=== PATIENT | female | born 1935 | race Caucasian/White ===

== ENCOUNTER → 2016-07-24 | Outpatient (CLI) | payer MEDICARE ==
[~2016-07-24] MED LIST: COREG6.25 MG PO; COUMADIN5 MG PO; DIGOX0.25 MG PO; DITROPAN PO; DITROPAN XL5 M2 PO; DITROPAN5 MG PO; INDERAL40 MG PO; LEVAQUIN750 MG PO; LIPITOR PO; LIPITOR20 MG PO; LISINOPRIL2.5 MG PO; NITROGLYCERIN0.4 MG SL; NORCO 5/325 TAB1 TAB PO; PLAVIX PO; VICODIN 5/500 T1 TAB PO
--- NOTE | ~2016-07-24 | CR181 ---
[facility] A Service of [facility] RADIOLOGY TEXT RESULTS PATIENT: BRITTANEY LEAL LOCATION: [facility] : 36 UNIT #: [id number] AGE: [address]: OSMAR GRANDA SEX: F ORDER DR: [id number] [facility] [address]. [place], [place] [address] [id number] O MR#: [id number] Acc #: [id number] NAME: BRITTANEY LEAL : 1935 SEX: F STUDY DATE/TIME: 07/24/2016 12:59 UNIT: [facility] ROOM: STUDY DESCRIPTION: CR Lumbar Spine 2 or 3 Views Attending Physician: Micky Hurtado Referring Physician: Micky Hurtado Ordering Physician: Micky Hurtado Primary Care Physician: Becky Canales M.D. MEDICAL IMAGING REPORT This report is preliminary unless electronic signature is present EXAM 3 views lumbar spine. DATE 07/24/2016 HISTORY Lower back pain for 5 days. No known injury. COMPARISON Lumbar spine radiographs 03/25/2012. FINDINGS Bilateral pedicle screws and vertical fusion rods are present at L4, L5 and S1. Hardware appears intact. Disc spacer devices are present at L4-5 and L5-S1. There is moderate diminished disc height at L2-3 which appears to have progressed since prior examination. There is mild posterior spurring at L2-3. Approximately 3-4 mm retrolisthesis of L2 with respect L3, unchanged compared to prior. No acute lumbar spine fracture is seen. There is levoscoliotic curvature centered at L3. IMPRESSION 1. Progressive degenerative loss of disc height at L2-3 in comparison to the 03/25/2012 examination. 4 mm retrolisthesis L2 upon L3 is not thought to be significantly changed, with mild posterior osteophyte formation at that level. 2. Posterior spinal fusion L4-S1 with intervening disc spacer devices L4-5 and L5-S1, unchanged. 3. Lumbar levoscoliosis centered at L3. 4. No acute fracture is seen. [facility] A Service of [facility] RADIOLOGY TEXT RESULTS PATIENT: BRITTANEY LEAL LOCATION: [facility] #: [id number] : 36 UNIT #: [id number] AGE: [address]: OSMAR GRANDA SEX: F ORDER DR: Dictated by... Barbara Matias M.D. THIS IS AN ELECTRONICALLY VERIFIED REPORT Barbara Matias M.D. at 07/27/2016 8:32 AM Colleen TD: 07/24/2016 18:21 JOB #: [id number] MEDICAL IMAGING REPORT Page 1 of 1 COPY
== END | disposition home or self-care (01) ==
LOC: CRAD 12:20
DX: M54.5 Low back pain (principal); M51.36 Other intervertebral disc degeneration, lumbar region; M43.16 Spondylolisthesis, lumbar region; M25.78 Osteophyte, vertebrae; M41.9 Scoliosis, unspecified; Z98.1 Arthrodesis status
CPT/HCPCS: 72100

== ENCOUNTER 2016-08-25 15:56 | Inpatient (IN) | payer MEDICARE ==
--- NOTE | ~2016-08-25 | EKG ---
PATIENT: BRITTANEY LEAL UNIT #: [id number] Ventricular Rate: 136 BPM Atrial Rate: 144 BPM QRS Duration: 68 ms Q-T Interval: 298 ms QTC Calculation(Bezet): 448 ms Calculated R [place]: 18 degrees Calculated T [place]: -14 degrees Diagnosis Line: Atrial fibrillation with rapid ventricular Diagnosis Line: response Diagnosis Line: Nonspecific ST and T wave abnormality Diagnosis Line: Abnormal ECG Diagnosis Line: When compared with ECG of 22-MAR-2011 09:19, Diagnosis Line: Atrial fibrillation has replaced Sinus rhythm Diagnosis Line: Non-specific change in ST segment in Inferior Diagnosis Line: leads Diagnosis Line: Non-specific change in ST segment in Anterior Diagnosis Line: leads Diagnosis Line: T wave inversion no longer evident in Anterior Diagnosis Line: leads Diagnosis Line: Confirmed by DEE FUENTES MD ([id number]) on Diagnosis Line: 08/25/2016 10:55:19 PM INTERPRETING MD: AMANDA
--- NOTE | ~2016-08-25 | EKG ---
PATIENT: BRITTANEY LEAL UNIT #: [id number] Ventricular Rate: 79 BPM Atrial Rate: 500 BPM QRS Duration: 74 ms Q-T Interval: 400 ms QTC Calculation(Bezet): 458 ms Calculated R [place]: 7 degrees Calculated T [place]: 37 degrees Diagnosis Line: Atrial fibrillation Diagnosis Line: Nonspecific T wave abnormality , probably Diagnosis Line: digitalis effect Diagnosis Line: Abnormal ECG Diagnosis Line: When compared with ECG of 25-AUG-2016 17:49, Diagnosis Line: Vent. rate has decreased BY 57 BPM Diagnosis Line: Confirmed by DEE FUENTES MD ([id number]) on Diagnosis Line: 08/27/2016 7:22:27 AM INTERPRETING MD: AMANDA
--- NOTE | ~2016-08-25 | CO ---
Unit #: [id number] #: [id number] Patient: BRITTANEY LEAL [id number] [address] [place], [place] [address] [id number] I MR#: [id number] NAME: BRITTANEY LEAL ROOM: 325 Age: 80 Sex: F Admission Date: 08/25/2016 : 1935 Attending Physician: Becky Canales M.D. Primary Care Physician: Becky Canales M.D. Consultation Date: 08/26/2016 CONSULTATION REPORT REASON FOR CONSULTATION Atrial fibrillation. HISTORY OF PRESENT ILLNESS The patient is a 80-year-old female who has been seen by [facility] in the past. In 2011 the patient had a non-STEMI and had a cardiac catheterization. Her left main was normal. Her mid LAD had 40% to 50% stenosis. Left circumflex and RCA were normal. At that time her ejection fraction was found to be decreased. An echo in 2013 revealed that her ejection fraction had normalized. Additional past medical history includes hypertension, hyperlipidemia, urinary incontinence, emphysema, and she is a nonsmoker. Patient presented to the emergency department with complaints of weakness, fever and chills. She states that she started feeling ill on Wednesday and became progressively worse. In the emergency department, the patient was found to have a urinary tract infection. She was also found to have atrial fibrillation with rapid ventricular rate with rates in the 170s. She was started on a Cardizem drip. The patient again reports that she did have an episode of atrial fibrillation in 2011. She is not currently on any medications. She denies any nausea, vomiting or chest pain. She states she did have some shortness of breath and palpitations when her heart rate was elevated. Again, the patient was started on a Cardizem drip. Cardiology has been consulted for atrial fibrillation. PAST MEDICAL HISTORY 1. Coronary artery disease with history of cath in 2011. Left main normal. Mid LAD 40% to 50% stenosis. Left circumflex and RCA normal. Reduced ejection fraction. 2. Two-D echo from 2013 shows a normal LVEF. 3. Chronic systolic CHF. 4. History of non-STEMI in 2011. 5. History of atrial fibrillation in 2011. 6. Paroxysmal atrial fibrillation. 7. Hypertension. 8. Hyperlipidemia. 9. Urinary incontinence. 10. History of UTIs. 11. Emphysema. 12. Nonsmoker. 13. "Asthma allergy." PAST SURGICAL HISTORY Cholecystectomy. Unit #: [id number] #: [id number] Patient: BRITTANEY LEAL ALLERGIES Penicillins, sulfa, morphine, codeine, aspirin, acetaminophen and eggs. HOME MEDICATIONS 1. Lipitor 10 mg p.o. at bedtime. 2. Ditropan XL 5 mg p.o. daily. 3. Propranolol 40 mg p.o. b.i.d. FAMILY HISTORY Positive for premature atherosclerotic heart disease with her mother suffering from CVAs before the age of 70. SOCIAL HISTORY The patient is a nonsmoker and a nondrinker. She still works approximately 60 hours a week. REVIEW OF SYSTEMS A 10-point review of systems has been done and is considered, otherwise, negative unless indicated in the HPI. PHYSICAL EXAMINATION GENERAL: The patient is awake, alert, in no acute distress. VITAL SIGNS: Temperature 97.9, heart rate 88, respirations 18, blood pressure 143/56. She is oxygenating 96%. HEENT: Head is atraumatic, normocephalic. Pupils are equal, round and reactive. Extraocular movements are intact. No drainage from ears or nares. NECK: Supple. Trachea is midline. No lymphadenopathy or thyromegaly is appreciated. Normal carotid upstrokes. CHEST: Lungs are clear to auscultation bilaterally. No wheezes, rales or rhonchi. CARDIOVASCULAR: Irregularly irregular. No murmurs, rubs or gallops are appreciated. ABDOMEN: Abdomen is soft, nontender, nondistended. Bowel sounds are positive in all 4 quadrants. SKIN: Skin appears to be warm, dry and intact without any unusual rashes or lesions. EXTREMITIES: No clubbing, edema or cyanosis. NEUROLOGIC: The patient is alert and oriented x4. She is pleasant and conversant. No focal deficits. DIAGNOSTIC STUDIES CARDIOVASCULAR: EKG shows atrial fibrillation with rapid ventricular rate. MOST RECENT LABORATORY RESULTS: Cholesterol 102 triglycerides 59, LDL 57, HDL 33. Potassium 3.4, magnesium 1.9. Urinalysis is positive. ASSESSMENT 1. Paroxysmal atrial fibrillation with RVR with a [id number] score of 5. 2. Coronary artery disease with history of cath in 2011. 3. Chronic systolic CHF with LVEF normal per echo in 2013. 4. History of non-STEMI in 2011. 5. History of atrial fibrillation in 2011. 6. Hypertension. 7. Hyperlipidemia. 8. Urinary tract infection with cultures pending. Unit #: [id number] #: [id number] Patient: BRITTANEY LEAL 9. Urinary incontinence. 10. Emphysema. 11. Nonsmoker. 12. "Asthma allergy." PLAN At this time we will ask nursing to send a urine culture if not already done. Will obtain an EKG now, as the patient appears to be in a controlled ventricular rate. We will obtain a BMP, mag, TSH and lipid panel. We will change the patient to Lovenox 1 mg/kg subcu daily. Again, the patient does have an allergy to aspirin. I will defer need for oral anticoagulation to Dr. Varela. I have discussed with the patient; she has not had any history of falls. Further recommendations will be made per Dr. Varela. Dictated by... Nazanin Branch A.P.R.N. for Humberto Varela M.D. AM/adriana TD: 08/26/2016 14:01 JOB #: [id number] CONSULTATION REPORT Page 1 of 1 X Nazanin Branch APRN X CONSULTATION REPORT
--- NOTE | ~2016-08-25 | HP ---
Unit #: [id number] #: [id number] Patient: BRITTANEY LEAL [id number] [facility] [address]. [place], [place] [address] [id number] I MR#: [id number] NAME: BRITTANEY LEAL ROOM: 325 Age: 80 Sex: F Admission Date: 08/25/2016 : 1935 Attending Physician: Becky Canales M.D. Primary Care Physician: Becky Canales M.D. HISTORY AND PHYSICAL CHIEF COMPLAINT Dizziness, generalized weakness, dysuria, and shortness of breath. HISTORY OF PRESENTING ILLNESS Patient is a 80-year-old female who was seen in our office, and she was very weak with irregular rhythm, tachycardia, and dysuria. Patient was admitted to telemetry unit at [facility]. According to patient, she has been sick since Wednesday. She was having vomiting with last vomiting on Wednesday. She could not eat for the last few days because of nausea and vomiting. She has not been feeling good. She had a temperature of 101 at home and had some chills. She does not complain of chest pain. She does not complain of abdominal pain. She does not complain of diarrhea. Actually, she is constipated. She did not fall and has not had any syncopal episode. PAST MEDICAL HISTORY 1. Non-ST elevation TN in 2011. 2. Coronary artery disease with a history of catheterization in 2011 and reduced ejection fraction with chronic systolic congestive heart failure. 3. Hypertension. 4. Hyperlipidemia. 5. Urinary incontinence. 6. Emphysema. PAST SURGICAL HISTORY Cholecystectomy. ALLERGIES Patient has multiple allergies including codeine, morphine, sulfa, penicillin, aspirin, acetaminophen, and eggs. HOME MEDICATIONS 1. Lipitor 10 mg at bedtime. 2. Ditropan 5 mg daily. 3. Inderal 40 mg twice daily. SOCIAL HISTORY Patient has no history of smoking, alcohol, or drug abuse. She continues to work. REVIEW OF SYSTEMS A 10-point review of systems was done which is as per History of Presenting Illness. No history of ear, nose, or throat problems. No Unit #: [id number] #: [id number] Patient: BRITTANEY LEAL history of skin issues. PHYSICAL EXAMINATION GENERAL: Patient is lying comfortably in bed, is being evaluated in room 325. VITAL SIGNS: Blood pressure is 114/67, respiratory rate 18, pulse 89, temperature 98.9, and oxygen saturation is 97%. On admission, pulse rate was 150. HEENT: Head is normocephalic. Eye movements are normal. Pale conjunctivae. NECK: Supple. CHEST: Fair air entry. No additional sounds. CARDIOVASCULAR: S1 and S2 positive. Irregular rhythm. Controlled rhythm at this time. ABDOMEN: Soft. No tenderness, no rigidity, no rebound, no organomegaly. EXTREMITIES: Negative edema. Pulses are palpable. CENTRAL NERVOUS SYSTEM: Awake, alert, and oriented x3. No focal neurological deficit. DIAGNOSTIC STUDIES LABORATORY: WBC 9.5, hemoglobin 13.5, hematocrit 39.6, and platelet count of 259,000. Lactic acid 1.3. Sodium 130, potassium 3.7, chloride 97, BUN 14, and creatinine 0.7. Liver enzymes are stable. Troponin less than 0.03. Urinalysis with 4+ bacteria and 3+ leukocyte. Lipid profile shows cholesterol of 102 and HDL 33. TSH is 1.59. Blood cultures were done which are negative. Urine culture is pending. ASSESSMENT Patient is being admitted to telemetry unit at [facility]. 1. Atrial fibrillation with rapid ventricular rate which is already improved. 2. Urinary tract infection. Urine culture is pending. 3. Hyponatremia. 4. History of coronary artery disease. 5. Chronic systolic congestive heart failure. 6. Hypertension. 7. Hyperlipidemia. PLAN Admit to telemetry unit. Dr. Baez has been consulted. Cardene drip is being started. Urine culture is pending. Patient's Lovenox is being changed to 1 mg/kg body weight subcutaneous daily. TSH is stable at this time. Home medications have been reviewed and adjusted. The plan of care has been discussed with patient. Dictated by Basim Christiansen TD: 08/26/2016 21:12 JOB #: [id number] Unit #: [id number] #: [id number] Patient: BRITTANEY LEAL HISTORY AND PHYSICAL Page 1 of 1 X Becky Canales MD HISTORY AND PHYSICAL
--- NOTE | ~2016-08-25 | US77 ---
[facility] A Service of [facility] RADIOLOGY TEXT RESULTS PATIENT: BRITTANEY LEAL LOCATION: [facility] 325- : 36 UNIT #: [id number] AGE: [address]: Becky Canales MD SEX: F ORDER DR: [id number] [facility] [address] [place] [address]. [place], [place] [address] [id number] I MR#: [id number] Acc #: [id number] NAME: BRITTANEY LEAL : 1935 SEX: F STUDY DATE/TIME: 08/27/2016 20:21 UNIT: [address] ROOM: [facility] STUDY DESCRIPTION: US Kidney Bilateral Complete Attending Physician: Becky Canales M.D. Ordering Physician: Becky Canales M.D. Primary Care Physician: Becky Canales M.D. MEDICAL IMAGING REPORT This report is preliminary unless electronic signature is present EXAM Renal sonogram CLINICAL HISTORY Left-sided flank pain for 2 weeks. FINDINGS Real-time examination demonstrates the right kidney to be of normal size, shape and echogenicity. Right kidney measures about 11 cm in length. No hydronephrosis. The left kidney measures 12.2 cm in length. Central echo complex unremarkable. The cortical thickness appears normal. There is a large cysts in the upper pole of the left kidney measuring up to 4.9 cm in greatest dimension. It appears simple in nature. The bladder is moderately distended. IMPRESSION A 4.9 cm upper pole left renal cyst, otherwise unremarkable renal sonogram. Dictated by... Rashel Pereira M.D. THIS IS AN ELECTRONICALLY VERIFIED REPORT Rashel Pereira M.D. at 08/28/2016 10:11 AM DEANNA/gavin TD: 08/28/2016 02:43 JOB #: [id number] MEDICAL IMAGING REPORT Page 1 of 1 COPY
--- NOTE | ~2016-08-25 | DS ---
Unit #: [id number] #: [id number] Patient: BRITTANEY LEAL [id number] [facility]. [place] [address] [id number] I MR#: [id number] NAME: BRITTANEY LEAL ROOM: 325 Age: 80 Sex: F Admission Date: 08/25/2016 : 1935 Discharge Date: 08/30/2016 Attending Physician: Becky Canales M.D. Primary Care Physician: Becky Canales M.D. DISCHARGE SUMMARY DISCHARGE DIAGNOSES 1. Atrial fibrillation with rapid ventricular rate, status post Cardiology evaluation. Started on digoxin and started on anticoagulation. Continue beta rogers. Stable to be discharged per Cardiology. Follow up as an outpatient. Check INR next Wednesday as per Cardiology; discharge date INR 2.2. See discharge medication reconciliation below. 2. History of coronary artery disease and systolic heart failure, stable. 3. Hypertension, stable. 4. Dyslipidemia. Continue statin. 5. Questionable urinary tract infection, status post negative culture. Was treated with empiric antibiotics. No sign of active infection. No leukocytosis. Afebrile. Stable to be discharged. DISCHARGE MEDICATIONS 1. Coumadin 5 mg daily. 2. Lanoxin 0.25 mg daily. 3. Inderal 40 mg b.i.d. 4. Ditropan 5 mg daily. 5. Lipitor 10 mg daily. FOLLOWUP With primary care physician in two to three days and Cardiology as an outpatient. DISPOSITION Please note, patient was evaluated by PT/OT who recommended okay to be discharged home. Dictated by... Simba French M.D. OC/am TD: 08/30/2016 17:01 JOB #: [id number] Unit #: [id number] #: [id number] Patient: BRITTANEY LEAL DISCHARGE SUMMARY Page 1 of 1 X Simba French MD DISCHARGE SUMMARY
[~2016-08-25 15:56] MED LIST changes: -COUMADIN5 MG PO; -DIGOX0.25 MG PO; -DITROPAN XL5 M2 PO; -INDERAL40 MG PO; -LIPITOR PO
[2016-08-25] MEDS ORDERED: LIPITOR PO (17:01)
[2016-08-25] MEDS ORDERED: DITROPAN XL5 M2 PO (17:02)
[2016-08-25] MEDS ORDERED: INDERAL40 MG PO (17:03)
[2016-08-25 19:50] LABS: BASOPHIL% 0.4 % (0-2.5); EOSINOPHIL% 0.1 % (0.0-7.0); HEMATOCRIT 39.6 % (35.0-45.0); HEMOGLOBIN 13.5 gm/dL (12.0-16.0); LYMPHOCYTE# 1.1 X10e3 (1.0-3.5); LYMPHOCYTE% 11.2 % (17.0-45.0); MEAN CELL VOLUME 91.7 FL (83-96); MEAN CORPUSCULAR HEMOGLOBIN 31.3 PG (28-34); MEAN CORPUSCULAR HGB CONC 34.2 g/dL (30-36); MEAN PLATELET VOLUME 8.2 FL (6.5-11.5); MONOCYTE# 1.2 X10e3 (0-1.0); MONOCYTE% 12.2 % (3.0-12.0); NEUTROPHIL# 7.2 X10e3 (1.5-7.1); NEUTROPHIL% 76.1 % (40-75); PLATELET COUNT 259 X10e3 (140-420); RED BLOOD COUNT 4.32 X10e (3.90-5.30); RED CELL DISTRIBUTION WIDTH 13.6 % (11.0-15.5); WHITE BLOOD COUNT 9.5 X10e3 (4.0-10.5)
[2016-08-25 19:59] LABS: DIFF IND NO
[2016-08-25 20:06] LABS: ALBUMIN SERUM 3.4 g/dL (3.5-5.0); BILIRUBIN,TOTAL 1.6 mg/dL (0.2-2.0); CALCIUM SERUM 8.5 mg/dL (8.4-10.2); CREATININE SERUM 0.7 mg/dL (0.6-1.4); GLOM FILT RATE Estimated 82.4 mL/min (>60); POTASSIUM 3.7 mmol/L (3.5-5.1); PROTEIN TOTAL SERUM 6.7 g/dL (6.0-8.3)
[2016-08-25 23:26] LABS: URINE SOURCE CLEAN CATCH
[2016-08-25 23:30] LABS: URINE APPEARANCE CLOUDY; URINE BILIRUBIN NEG (NEG); URINE BLOOD 2+ (NEG); URINE COLOR YELLOW; URINE GLUCOSE NEG (NEG); URINE KETONE TRACE (NEG); URINE LEUKOCYTE ESTERASE 3+ (NEG); URINE NITRATE NEG (NEG); URINE PROTEIN 1+ (NEG); URINE SPECIFIC GRAVITY 1.012 (1.003-1.035)
[2016-08-25 23:32] LABS: U HYALINE CASTS AUWI 0-2 /[LPF]; URINE BACTERIA AUWI 4+ (NEGATIVE); URINE SQUAMOUS EPITHELIAL CELL NONE SEEN /[HPF]; UWBCS1 AUWI 200-300 (0-5)
[2016-08-25 23:42] LABS: MAGNESIUM 1.9 mg/dL (1.6-3.0); POTASSIUM 3.4 mmol/L (3.5-5.1)
[2016-08-26 11:32] LABS: CHOLESTEROL 102 mg/dL (0-200); HDL CHOLESTEROL 33 mg/dL (35-95); LDL CHOLESTEROL 57 mg/dL (-130); LDL/HDL RATIO 2 RATIO (0-4); TRIGLYCERIDES 59 mg/dL (10-160)
[2016-08-27 07:00] LABS: CALCIUM SERUM 8.1 mg/dL (8.4-10.2); CREATININE SERUM 0.5 mg/dL (0.6-1.4); GLOM FILT RATE Estimated 92.1 mL/min (>60); MAGNESIUM 1.9 mg/dL (1.6-3.0); POTASSIUM 3.2 mmol/L (3.5-5.1)
[2016-08-27 12:53] LABS: PROTHROMBIN TIME (PATIENT) 10.7 SECONDS (10.0-11.7)
[2016-08-28 06:19] LABS: HEMATOCRIT 36.8 % (35.0-45.0); HEMOGLOBIN 12.5 gm/dL (12.0-16.0); MEAN CELL VOLUME 91.5 FL (83-96); MEAN CORPUSCULAR HGB CONC 33.9 g/dL (30-36); MEAN PLATELET VOLUME 8.2 FL (6.5-11.5); RED BLOOD COUNT 4.02 X10e (3.90-5.30); RED CELL DISTRIBUTION WIDTH 13.5 % (11.0-15.5); WHITE BLOOD COUNT 5.6 X10e3 (4.0-10.5)
[2016-08-28 06:30] LABS: PROTHROMBIN TIME (PATIENT) 11.2 SECONDS (10.0-11.7)
[2016-08-28 07:03] LABS: CALCIUM SERUM 8.2 mg/dL (8.4-10.2); CREATININE SERUM 0.5 mg/dL (0.6-1.4); GLOM FILT RATE Estimated 92.1 mL/min (>60); MAGNESIUM 2.2 mg/dL (1.6-3.0); POTASSIUM 4.1 mmol/L (3.5-5.1)
[2016-08-29 06:40] LABS: HEMATOCRIT 35.6 % (35.0-45.0); MEAN CELL VOLUME 91.9 FL (83-96); MEAN CORPUSCULAR HEMOGLOBIN 30.9 PG (28-34); MEAN CORPUSCULAR HGB CONC 33.6 g/dL (30-36); MEAN PLATELET VOLUME 7.8 FL (6.5-11.5); RED BLOOD COUNT 3.88 X10e (3.90-5.30); RED CELL DISTRIBUTION WIDTH 13.9 % (11.0-15.5); WHITE BLOOD COUNT 6.3 X10e3 (4.0-10.5)
[2016-08-29 06:52] LABS: INR 1.3; PROTHROMBIN TIME (PATIENT) 13.8 SECONDS (10.0-11.7)
[2016-08-29 07:04] LABS: BUN/CREATININE RATIO 16.66; CREATININE SERUM 0.6 mg/dL (0.6-1.4); GLOM FILT RATE Estimated 86.7 mL/min (>60); POTASSIUM 4.3 mmol/L (3.5-5.1)
[2016-08-30 06:32] LABS: BUN/CREATININE RATIO 18.33; CALCIUM SERUM 8.7 mg/dL (8.4-10.2); CREATININE SERUM 0.6 mg/dL (0.6-1.4); GLOM FILT RATE Estimated 86.7 mL/min (>60); POTASSIUM 4.3 mmol/L (3.5-5.1)
[2016-08-30 07:37] LABS: INR 2.2
[2016-08-30] MEDS ORDERED: COUMADIN5 MG PO (17:54)
[2016-08-30] MEDS ORDERED: DIGOX0.25 MG PO (17:55)
== END 2016-08-30 19:32 | disposition home or self-care (01) | DRG 309 ==
LOC: C3A PCU 15:56 → UNDOADMIN 15:56 → C3A PCU 16:00
PROVIDERS: Hospitalist; Nurse Practitioner; Physician Assistant Medical
DX: I48.0 Paroxysmal atrial fibrillation (principal); I50.22 Chronic systolic (congestive) heart failure; I11.0 Hypertensive heart disease with heart failure; N39.0 Urinary tract infection, site not specified; E87.1 Hypo-osmolality and hyponatremia; I25.10 Atherosclerotic heart disease of native coronary artery without angina pectoris; E78.5 Hyperlipidemia, unspecified; K59.00 Constipation, unspecified; I25.2 Old myocardial infarction; J43.9 Emphysema, unspecified; Z90.49 Acquired absence of other specified parts of digestive tract; Z88.5 Allergy status to narcotic agent; Z88.0 Allergy status to penicillin; Z88.2 Allergy status to sulfonamides; Z88.6 Allergy status to analgesic agent; Z91.012 Allergy to eggs; E86.0 Dehydration; R32 Unspecified urinary incontinence
CPT/HCPCS: 76770; 80048; 80053; 80061; 81003; 82550; 83605; 83735; 84132; 84443; 84484; 85025; 85027; 85610; 87040; 87086; 93005; J0696; J1160; J1650; J3475

== ENCOUNTER → 2016-08-31 | Outpatient (CLI) | payer MEDICARE ==
[~2016-08-31] MED LIST changes: +COUMADIN5 MG PO; +DIGOX0.25 MG PO; +DITROPAN XL5 M2 PO; +INDERAL40 MG PO; +LIPITOR PO
[2016-08-31 14:13] LABS: INR 2.2; PROTHROMBIN TIME (PATIENT) 23.4 SECONDS (10.0-11.7)
== END | disposition home or self-care (01) ==
LOC: CLAB 13:14
PROVIDERS: Nurse Practitioner
DX: Z51.81 Encounter for therapeutic drug level monitoring (principal); I48.91 Unspecified atrial fibrillation; Z79.01 Long term (current) use of anticoagulants
CPT/HCPCS: 36415; 85610